=== PATIENT | female | born 1960 | race American Indian/Alaskan Native ===

== ENCOUNTER → 2020-09-03 15:59 | Outpatient (CLI) | payer MEDICAID, OTHER, SELFPAY ==
--- NOTE | 2020-09-03 | DI.RAD.S_ITS ---
PROCEDURE: XR THORACIC SPINE 2V INDICATIONS: PARESTHESIS OF SKIN, DORSALGIA, UNSPECIFIED TECHNIQUE: 2 views of the thoracic spine were acquired. COMPARISON: [facility], , THORACIC SPINE 3 VIEWS, 06/24/2011, 15:08. FINDINGS: Bones: Age indeterminate anterior wedge compression deformity involving a vertebral body near thoracolumbar junction is seen with kyphosis centered at this area. No other compression fracture or spondylolisthesis. Mild degenerative endplate changes in mid to lower thoracic spine is seen. No suspicious bony lesions. 12 pairs of ribs are noted, and appear intact where visualized. Soft tissues: No paravertebral stripe thickening. IMPRESSION: Age indeterminate anterior wedge compression deformity involving possible T12 or L1 vertebral body new since previous studies in 2010. Kyphosis is noted centered at thoracolumbar junction. Degenerative endplate changes are noted throughout mid to lower thoracic spine. Dictated by: Patrick Ortega M.D. on 09/03/2020 at 17:25 Approved by: Patrick Ortega M.D. on 09/03/2020 at 17:40
--- NOTE | 2020-09-03 16:01 | DI.US.S_ITS ---
PROCEDURE: US ABDOMEN COMPLETE INDICATIONS: UPPER ABDOMINAL PAIN TECHNIQUE: Real-time scanning was performed of the abdominal and retroperitoneal organs, with image documentation. COMPARISON: None. FINDINGS: Liver: Liver is normal in size . Increased liver parenchymal echotexture is seen. No gross discrete hepatic lesion. Gallbladder: Gallbladder is surgically absent. Biliary ducts: Mild intrahepatic biliary ductal dilatation is seen. Common hepatic duct measures up to 10.5 mm in diameter. Common bile duct measures 7 millimeter in diameter. Normal is 6-7 mm or less in diameter, or 10 mm or less post-cholecystectomy. Pancreas: Visualized portions of the pancreas shows mildly increased pancreatic parenchymal echotexture. Spleen: Spleen is normal in size . Heterogeneously increased splenic parenchymal echotexture is seen. Kidneys: Kidneys are normal in size and echotexture. Right kidney measures 11.7 cm long; left kidney measures 12.4 cm long. Mild prominence of right renal pelvis is seen. 5 millimeter echogenic structure with through acoustic shadowing is seen in midpole of right kidney. No solid masses. Aorta: Visualized aorta is normal in caliber at less than 3 cm. Iliacs: Proximal common iliac arteries are normal in caliber at less than 2.5 cm. IVC: Intrahepatic inferior vena cava is patent. Miscellaneous: No free abdominal fluid. IMPRESSION: 1. Technically difficult study due to patient's body habitus and poor penetration through the liver. 2. Hepatic steatosis. No gross discrete hepatic lesion. 3. Gallbladder is surgically absent. Mild prominence of intrahepatic biliary ducts and common hepatic duct as above. Consider MRCP for further evaluation if clinically indicated. Comparison with prior study can also be helpful if available. 4. Mild prominence of right renal collecting system and suggestion of a 5 millimeter nonobstructing right renal stone. No left-sided hydronephrosis. Dictated by: Patrick Ortega M.D. on 09/03/2020 at 17:20 Approved by: Patrick Ortega M.D. on 09/03/2020 at 17:25
== END ==
PROVIDERS: Referring Provider Physician Assistant; Visit Provider Physician Assistant
DX: R10.10 Upper abdominal pain, unspecified (principal); K76.0 Fatty (change of) liver, not elsewhere classified; M54.9 Dorsalgia, unspecified; M47.814 Spondylosis without myelopathy or radiculopathy, thoracic region; M40.205 Unspecified kyphosis, thoracolumbar region; R20.2 Paresthesia of skin; R20.0 Anesthesia of skin; Z90.49 Acquired absence of other specified parts of digestive tract
CPT/HCPCS: 72070; 76700